=== PATIENT | male | born 1950 | race Caucasian/White ===

== ENCOUNTER 2021-09-17 08:51 | Outpatient (CLI) | payer BC, SELFPAY ==
--- NOTE | ~2021-09-17 | XR_ITS ---
EXAMINATION: XR forearm RT 2V INDICATION: Right forearm pain TECHNIQUE: Two views of the right forearm are obtained. COMPARISON: None available FINDINGS: Bone alignment is normal. No fracture is identified. 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 Mild soft tissue swelling is noted near the wrist. IMPRESSION: 1. No acute osseous abnormality. Reviewed, dictated and finalized at location A.
== END 2021-09-17 08:52 | disposition home or self-care (01) ==
LOC: CHSLAB 09:00
PROVIDERS: PCP Physician Assistant; Visit Provider Physician Assistant
DX: M79.601 Pain in right arm (principal)
CPT/HCPCS: 73090

== ENCOUNTER 2024-02-11 09:06 | Outpatient (CLI) | payer BC, SELFPAY ==
[2024-02-11 09:25] LABS: Basophils Absolute Auto 0.02 K/mm3 (0.00-0.10); Basophils Percent Auto 0.3 % (0.0-1.0); Eosinophils Percent Auto 1.5 % (1.0-6.0); Hematocrit 44.7 % (37.0-46.0); Hemoglobin 14.7 g/dL (12.4-15.3); Immature Granulocyte Absolute 0.01 K/mm3 (0.00-0.00); Immature Granulocyte Percent A 0.1 % (0.0-0.0); Lymphocytes Absolute Auto 1.34 K/mm3 (1.10-4.50); Mean Corpuscular HGB Conc 32.9 g/dL (32-36); Mean Corpuscular Hemoglobin 32.5 pg (27.0-31.0); Mean Corpuscular Volume 98.7 fL (78.0-102.0); Mean Platelet Volume 9.7 fl (8.7-11.0); Monocytes Absolute Auto 0.55 K/mm3 (0.10-0.90); Monocytes Percent Auto 8.2 % (2.0-11.0); Neutrophils Absolute Auto 4.69 K/mm3 (1.70-7.20); Neutrophils Percent Auto 69.9 % (50.0-70.0); Platelet Count Result 179 K/mm3 (150-420); Red Blood Count 4.53 M/mm3 (4.70-6.10); Red Cell Distribution Width 12.9 % (11.6-14.4); White Blood Count 6.7 K/mm3 (4.8-10.8)
[2024-02-11 10:11] LABS: Alanine Aminotransferase 39 U/L (16-63); Albumin Level 4.1 g/dL (3.4-5.0); Alkaline Phosphatase 74 U/L (46-116); Anion Gap 8 mmol/L (8-16); Aspartate Amino Transferase 23 U/L (15-37); Bilirubin,Total 0.9 mg/dL (0.00-1.00); Blood Urea Nitrogen 12 mg/dL (7-18); Calcium 9.3 mg/dL (8.5-10.1); Carbon Dioxide 34 mmol/L (21-32); Chloride 101 mmol/L (98-108); Cholesterol 155 mg/dL (0-200); Estimated Glomerular Filt Rate > 60; Glucose 103 mg/dL (70-99); HDL Direct 76 mg/dL (40-60); LDL Cholesterol Calculated 67 mg/dL (<130); Osmolality Calculated 295 mOsm/kg (285-295); Potassium 4.9 mmol/L (3.5-5.1); Sodium 143 mmol/L (136-145); Total Protein 6.9 g/dL (6.4-8.2); Triglycerides 61 mg/dL (0-150)
== END 2024-02-11 09:07 | disposition home or self-care (01) ==
LOC: CHSLAB 09:12
PROVIDERS: PCP Physician Assistant; Visit Provider Physician Assistant
DX: I63.311 Cerebral infarction due to thrombosis of right middle cerebral artery (principal)
CPT/HCPCS: 36415; 80053; 80061; 85025; 85027